=== PATIENT | female | born 1935 | race Caucasian/White ===

== ENCOUNTER → 2017-01-16 | Outpatient (CLI) | payer OTHER ==
[~2017-01-16] MED LIST: ALLEGRA60 MG PO; ASPIRIN EC81 M1 PO; ATACAND16 MG PO; ATACAND8 MG PO; BISACODYL SUPP10 MG; BYETTA PEN 11 PENIN1 SUBQ; CALCIUM 500 +1 EAC5 PO; CLARITIN10 MG PO; CRESTOR20 MG PO; DEMECLOCYCLINE150 MG PO; DETROL LA4 MG PO; DULCOLAX5 MG; FLONASE 0.05%50 MCG NASAL; FLORANEX TABLE1 EACH PO; GLUCOPHAGE1000 MG PO; GLUCOSAMINE &1 EAC1 PO; GLUCOSAMINE HC500 M1 PO; LEVOTHYROXIN0.125 M1 PO; LOPRESSOR 50 MG50 M1 PO; LOPRESSOR50 PO; LORTAB 7.5/5001 TA3 PO; MULTIVITAMINS PO; NABUMETONE 750750 M1 PO; NAMENDA 10 MG T10 MG PO; NORVASC 5 MG TAB5 MG PO; RELAFEN750 MG PO; ROBAXIN 750 MG750 M1 PO; SEROQUEL 12.512.5 MG PO; SODIUM CHLORID100 M4 IV; TRAMADOL 50 MG50 MG PO; TYLENOL325 MG PO; VITAMINC500 PO; ZETIA10 MG PO; ZYRTEC10 M2 PO; [UNRECOGNIZED DRUG - OTHER] PO
== END ==
LOC: HYPER 07:14
DX: E11.621 Type 2 diabetes mellitus with foot ulcer (principal); L97.511 Non-pressure chronic ulcer of other part of right foot limited to breakdown of skin; E87.1 Hypo-osmolality and hyponatremia; Z87.891 Personal history of nicotine dependence; Z72.89 Other problems related to lifestyle

== ENCOUNTER → 2017-02-05 | Outpatient (CLI) | payer OTHER | LOC: HYPER 07:03 | DX: E11.621 Type 2 diabetes mellitus with foot ulcer (principal); L97.522 Non-pressure chronic ulcer of other part of left foot with fat layer exposed; E87.1 Hypo-osmolality and hyponatremia; L84 Corns and callosities; Z87.891 Personal history of nicotine dependence; Z72.89 Other problems related to lifestyle ==

== ENCOUNTER → 2017-10-12 | Outpatient (CLI) | payer OTHER | LOC: RAD 08:22 | DX: Z12.31 Encounter for screening mammogram for malignant neoplasm of breast (principal) ==